=== PATIENT | male | born 1990 | race Caucasian/White ===

== ENCOUNTER 2017-07-30 12:29 | Day surgery (SDC) | payer MEDICAID ==
[~2017-07-30 12:29] MED LIST: Lactated Ringers 1,000 ML IV SCH
[2017-07-30] MEDS ORDERED: Morphine 2 MG/ML Syringe IVPUSH ONE (12:46)
[2017-07-30] MEDS: Sodium Chloride 0.9% 10 ML Syringe FLUSH PRN (13:00)
[2017-07-30] MEDS ORDERED: Rocuronium 100 MG/10 ML MDV IV ONE (13:18)
[2017-07-30] MEDS ORDERED: fentaNYL 100 MCG/2 ML SDV IV ONE (13:18)
[2017-07-30] MEDS ORDERED: Ketorolac 30 MG/ML SDV IVPUSH ONE ×2 (13:18→22:08)
[2017-07-30] MEDS ORDERED: Midazolam 1 MG/ML 2 ML SDV IV ONE (13:18)
[2017-07-30] MEDS ORDERED: Succinylcholine 200 MG/10 ML MDV IV ONE (13:18)
[2017-07-30] MEDS ORDERED: diphenhydrAMINE 50 MG/ML SDV IV ONE (13:18)
[2017-07-30] MEDS ORDERED: Propofol 200 MG/20 ML SDV IV ONE (13:18)
[2017-07-30] MEDS ORDERED: Neostigmine Methylsulfate 10 MG/10 ML MDV IVPUSH ONE (13:18)
[2017-07-30] MEDS ORDERED: Ondansetron 4 MG/2 ML SDV IVPUSH ONE (13:18)
[2017-07-30] MEDS ORDERED: Lactated Ringers 1,000 ML IV ONE (13:18)
[2017-07-30] MEDS ORDERED: Dexamethasone 4 MG/ML 5 ML MDV IVPUSH ONE (13:18)
[2017-07-30] MEDS ORDERED: cefOXitin 1 GM Vial IV ONE (13:18)
--- NOTE | 2017-07-30 13:21 | PCM.HP ---
H&P History of Present Illness - General Date of Service: 07/30/17 Admit Problem/Dx: Admission Diagnosis/Problem Admission Diagnosis/Problem Appendicitis Source of Information: Patient History Limitations: Reports: No Limitations - History of Present Illness Initial Comments - Free Text/Narative: Transferred from [place] for treatment of acute appendicitis Symptom Onset Date: 07/29/17 Duration of Symptoms: Reports: Getting Worse Location: Reports: Abdomen (localized to RLQ) Quality: Reports: Sharp Severity: Severe Improves with: Reports: None Worsens with: Reports: Movement Associated Symptoms: Reports: No Other Symptoms. Denies: Nausea/Vomiting - Related Data Allergies/Adverse Reactions: Allergies Allergy/AdvReac Type Severity Reaction Status Date / Time No Known Allergies Allergy Verified 07/30/17 12:04 Past Medical History - Past Health History Medical/Surgical History: Denies Medical/Surgical History Social & Family History - Tobacco Use Smoking Status *Q: Current Every Day Smoker Years of Tobacco use: 8 Packs/Tins Daily: 1 Used Tobacco, but Quit: No - Recreational Drug Use Recreational Drug Use: Yes Drug Use in Last 12 Months: Yes Recreational Drug Type: Reports: Marijuana/Hashish Recreational Drug Use Frequency: Daily H&P Review of Systems - Review of Systems: Review Of Systems: See Below General: Reports: No Symptoms. Denies: Fever, Chills Pulmonary: Reports: No Symptoms Cardiovascular: Reports: No Symptoms Gastrointestinal: Reports: Abdominal Pain. Denies: Nausea, Vomiting Genitourinary: Reports: No Symptoms Exam - Exam Exam: See Below - Vital Signs Weight: 68.039 kg - Exam General: Alert, Oriented Lungs: Clear to Auscultation, Normal Respiratory Effort Cardiovascular: Regular Rate, Regular Rhythm GI/Abdominal Exam: Soft, Tender (RLQ) - Patient Data Imaging Impressions Last 24 hrs: CT scan from [place] showed acute appendicitis *Q Meaningful Use (ADM) - VTE *Q VTE Criteria *Q: - Stroke *Q Stroke Criteria *Q: - AMI *Q AMI Criteria *Q: - Problem List (1) Appendicitis, acute SNOMED Code(s): 89547189 ICD Code: K35.80 - UNSPECIFIED ACUTE APPENDICITIS Status: Acute Current Visit: Yes Problem List Initiated/Reviewed/Updated: Yes Orders Last 24hrs: Active Orders 24 hr Category Date Time Status Patient Status [ADT] Routine ADT 07/30/17 12:15 Ordered Patient to Empty Bladder [RC] ASDIRECTED Care 07/30/17 12:15 Active RT Incentive Spirometry [RC] ASDIRECTED Care 07/30/17 12:15 Active Verify Patient Consent Obtain [RC] ASDIRECTED Care 07/30/17 12:15 Active Nothing Per Oral Diet [DIET] Diet 07/30/17 Breakfast Ordered Lactated Ringers [Ringers, Lactated] 1,000 ml Med 07/30/17 12:15 Active IV ASDIRECTED Sodium Chloride 0.9% [Saline Flush] Med 07/30/17 12:15 Active 10 ml FLUSH ASDIRECTED PRN Peripheral IV Insertion Adult [OM.PC] Routine Oth 07/30/17 12:15 Ordered Sequential Compression Device [OM.PC] Routine Oth 07/30/17 12:15 Ordered Resuscitation Status Routine Resus Stat 07/30/17 12:06 Ordered Medication Orders Lactated Ringer's (Ringers, Lactated) 1,000 mls @ 125 mls/hr IV ASDIRECTED RENATA Last Admin: 07/30/17 13:10 Dose: 125 mls/hr Sodium Chloride (Saline Flush) 10 ml FLUSH ASDIRECTED PRN PRN Reason: Keep Vein Open Last Admin: 07/30/17 13:00 Dose: 10 ml Assessment/Plan Comment:: Acute Appendicitis Cosmo proceed with lap appy Reviewed risks and complications and consent obtained
[2017-07-30] MEDS ORDERED: Morphine 2 MG/ML Syringe IVPUSH PRN (14:07)
--- NOTE | 2017-07-30 14:07 | PCM.OPNOTE ---
- General Post-Op/Procedure Note Date of Surgery/Procedure: 07/30/17 Operative Procedure(s): Lap Appy Findings: Acute Appendicitis Pre Op Diagnosis: Acute Appendicitis Post-Op Diagnosis: Same Anesthesia Technique: General ET Tube Primary Surgeon: Nam Wan Anesthesia Provider: Catalina Shelley Pathology: Appendix EBL in mLs: 5 Complications: None Condition: Good
[2017-07-30] MEDS: Morphine 2 MG/ML Syringe IVPUSH PRN ×2 (14:36→14:53)
--- NOTE | 2017-07-30 15:23 | OR ---
DATE OF OPERATION: 07/30/2017 SURGEON: Nam Wan MD PREOPERATIVE DIAGNOSIS: Acute appendicitis. POSTOPERATIVE DIAGNOSIS: Acute appendicitis. PROCEDURE: Laparoscopic appendectomy. ANESTHESIA: General. DESCRIPTION OF PROCEDURE: The patient was brought to the operating room, where general endotracheal anesthesia was administered. His abdomen was prepped with ChloraPrep and draped sterilely. An infraumbilical incision was made and extended into the peritoneal cavity without difficulty. The Verna cannulator was introduced and pneumoperitoneum obtained. A 5 mm ports were placed in the suprapubic position and skilled nursing between the umbilicus and pubis. The patient was placed in Trendelenburg position and rotated to the left. A large acutely inflamed appendix was present with some omentum stuck to it that was removed. The mesoappendix was taken down with one application of an Endo-VALDEZ 2.5 mm stapler. The pulsatile vessel was present along the staple line that was doubly clipped with a hemoclip. The appendix was then transected at its base with an Endo-VALDEZ 3.5 mm stapler. There was also a pulsatile small-vessel that was clipped with a hemoclip for hemostasis. Appendix was brought out through the umbilical incision and right lower quadrant thoroughly inspected and irrigated and return was clear and hemostasis assured. Ports were removed under direct vision and remained hemostatic. Umbilical fascia was closed with figure-of- eight 0 Vicryl. Skin was closed with 4-0 Vicryl subcuticular sutures. Benzoin and Steri-Strips were placed and Band-Aids applied. The patient tolerated the procedure well. ESTIMATED BLOOD LOSS: 5 mL. He returned to postanesthesia in stable condition. /[id number] [id number]/JACQUI
[2017-07-30] MEDS: Acetaminophen/HYDROcodone 325-5 MG Tab PO PRN ×2 (16:43→20:50)
[2017-07-30] MEDS: Lactated Ringers 1,000 ML IV SCH (18:30)
[2017-07-30] MEDS ORDERED: Nicotine 21 MG/24 Hr Patch TRDERM ONE (19:12)
[2017-07-31] MEDS: Acetaminophen/HYDROcodone 325-5 MG Tab PO PRN ×3 (00:50→09:16)
[2017-07-31] MEDS: Lactated Ringers 1,000 ML IV SCH (02:33)
[2017-07-31] MEDS ORDERED: Ketorolac 30 MG/ML SDV IVPUSH ONE (12:22)
--- NOTE | 2017-07-31 12:26 | PCM.SURGPN ---
- General Info Date of Service: 07/31/17 POD#: 1 Functional Status: Reports: Pain Controlled, Tolerating Diet, Ambulating - Review of Systems General: Reports: No Symptoms - Patient Data Vitals - Most Recent: Last Vital Signs Temp 97.6 F 07/31/17 08:10 Pulse 58 L 07/31/17 08:10 Resp 18 07/31/17 08:10 BP 123/77 07/31/17 08:10 Pulse Ox 100 07/31/17 08:10 Weight - Most Recent: 68.039 kg I&O - Last 24 Hours: Intake & Output 07/30/17 07/31/17 07/31/17 22:59 06:59 14:59 Intake Total 825 998 586 Output Total 300 400 Balance 525 598 586 Med Orders - Current: Current Medications Hydrocodone Bitart/Acetaminophen ([place] 325-5 Mg) 1 tab PO Q4H PRN PRN Reason: Pain Last Admin: 07/31/17 09:16 Dose: 1 tab Lactated Ringer's (Ringers, Lactated) 1,000 mls @ 125 mls/hr IV ASDIRECTED [facility] Last Admin: 07/31/17 02:33 Dose: 125 mls/hr Ketorolac Tromethamine (Toradol) 30 mg IVPUSH ONETIME ONE Stop: 07/31/17 12:23 Sodium Chloride (Saline Flush) 10 ml FLUSH ASDIRECTED PRN PRN Reason: Keep Vein Open Last Admin: 07/30/17 13:00 Dose: 10 ml Discontinued Medications Lactated Ringer's (Ringers, Lactated) 1,000 mls @ 125 mls/hr IV ASDIRECTED [facility] Last Admin: 07/30/17 13:10 Dose: 125 mls/hr Ketorolac Tromethamine (Toradol) 30 mg IVPUSH ONETIME ONE Stop: 07/30/17 22:09 Last Admin: 07/30/17 22:37 Dose: 30 mg Morphine Sulfate (Morphine) 2 mg IVPUSH ONETIME ONE Stop: 07/30/17 12:47 Last Admin: 07/30/17 13:04 Dose: 2 mg Morphine Sulfate (Morphine) 2 mg IVPUSH Q2H PRN PRN Reason: Pain (severe 7-10) Morphine Sulfate (Morphine) 2 mg IVPUSH Q3M PRN PRN Reason: Abdominal Pain Last Admin: 07/30/17 14:53 Dose: 2 mg Nicotine (Habitrol) 21 mg TRDERM ONETIME ONE Stop: 07/30/17 19:13 Last Admin: 07/30/17 19:39 Dose: 21 mg - Exam Wound/Incisions: Healing Well GI/Abdominal Exam: Soft - Problem List & Annotations (1) Appendicitis, acute SNOMED Code(s): 47780056 Code(s): K35.80 - UNSPECIFIED ACUTE APPENDICITIS Status: Acute Current Visit: Yes Qualifiers: Acute appendicitis type: unspecified acute appendicitis type Qualified Code (s): K35.80 - Unspecified acute appendicitis - Problem List Review Problem List Initiated/Reviewed/Updated: Yes - My Orders Last 24 Hours: Active Orders 24 hr Category Date Time Status Patient Status [ADT] Routine ADT 07/30/17 12:15 Ordered May Shower [RC] ASDIRECTED Care 07/31/17 08:00 Active Oxygen Therapy [RC] PRN Care 07/30/17 14:07 Active RT Incentive Spirometry [RC] ASDIRECTED Care 07/30/17 12:15 Active Ready for Discharge [RC] PER UNIT ROUTINE Care 07/31/17 12:24 Ordered Up ad Tracie [RC] .PRN Care 07/30/17 14:07 Active Vital Signs [RC] 00,04,08,12,16,20 Care 07/30/17 14:07 Active Soft Diet [DIET] Diet 07/31/17 Lunch Ordered Acetaminophen/HYDROcodone [[place] 325-5 MG] Med 07/30/17 16:18 Active 1 tab PO Q4H PRN Ketorolac [Toradol] Med 07/31/17 12:22 Once 30 mg IVPUSH ONETIME ONE Lactated Ringers [Ringers, Lactated] 1,000 ml Med 07/30/17 14:15 Active IV ASDIRECTED Sodium Chloride 0.9% [Saline Flush] Med 07/30/17 12:15 Active 10 ml FLUSH ASDIRECTED PRN Peripheral IV Insertion Adult [OM.PC] Routine Oth 07/30/17 12:15 Ordered Sequential Compression Device [OM.PC] Routine Oth 07/30/17 12:15 Ordered Resuscitation Status Routine Resus Stat 07/30/17 12:06 Ordered Medication Orders Hydrocodone Bitart/Acetaminophen ([place] 325-5 Mg) 1 tab PO Q4H PRN PRN Reason: Pain Last Admin: 07/31/17 09:16 Dose: 1 tab Admin: 07/31/17 05:05 Dose: 1 tab Admin: 07/31/17 00:50 Dose: 1 tab Admin: 07/30/17 20:50 Dose: 1 tab Admin: 07/30/17 16:43 Dose: 1 tab Lactated Ringer's (Ringers, Lactated) 1,000 mls @ 125 mls/hr IV ASDIRECTED RENATA Last Admin: 07/31/17 02:33 Dose: 125 mls/hr Infusion: 07/31/17 02:30 Dose: 125 mls/hr Admin: 07/30/17 18:30 Dose: 125 mls/hr Ketorolac Tromethamine (Toradol) 30 mg IVPUSH ONETIME ONE Stop: 07/31/17 12:23 Sodium Chloride (Saline Flush) 10 ml FLUSH ASDIRECTED PRN PRN Reason: Keep Vein Open Last Admin: 07/30/17 13:00 Dose: 10 ml - Assessment Assessment (Free Text/Narrative):: Doing well - Plan Plan (Free Text/Narrative):: Discharge to home
[2017-07-31] MEDS: Sodium Chloride 0.9% 10 ML Syringe FLUSH PRN (12:35)
== END 2017-07-31 12:50 | disposition home or self-care (01) ==
LOC: FB.SDS 12:29 → FB.MS 15:10 → FB.SDS 07-31 12:50
PROVIDERS: ATTEND Surgery
DX: K35.80 Unspecified acute appendicitis (principal); F17.210 Nicotine dependence, cigarettes, uncomplicated
CPT/HCPCS: 44970; A9270; J1885; J2270; J7050; J7120; 88304; J0330; J0694; J1100; J1200; J2250; J2405; J2704; J2710; J3010

== ENCOUNTER 2024-05-10 12:51 | Emergency (ER) | payer SELFPAY ==
[2024-05-10] MEDS: Sodium Chloride 0.9% 1,000 ML IV ONE ×2 (13:24→14:22)
[2024-05-10] MEDS: Aspirin 81 MG Tab.Chew PO ONE (13:24)
[2024-05-10 13:30] LABS: BASOPHILS ABSOLUTE AUTO 0.1 x10-3/uL (0.0-0.3); BASOPHILS PERCENT AUTO 0.8 % (0.3-3.8); EOSINOPHILS ABSOLUTE AUTO 0.1 x10-3/uL (0.0-0.6); EOSINOPHILS PERCENT AUTO 0.5 % (0.1-6.8); LYMPHOCYTES ABSOLUTE AUTO 2.4 x10-3/uL (0.5-4.5); LYMPHOCYTES PERCENT AUTO 22.1 % (15.8-45.3); MEAN CORPUSCULAR HGB CONC 34.1 g/dL (28.7-35.3); MEAN CORPUSCULAR VOLUME 90.9 fL (80.8-98.7); MEAN PLATELET VOLUME 8.3 fL (6.7-11.0); MONOCYTES ABSOLUTE AUTO 0.6 x10-3/uL (0.0-1.2); MONOCYTES PERCENT AUTO 5.5 % (5.5-15.2); NEUTROPHILS ABSOLUTE AUTO 7.6 x10-3/uL (1.7-6.9); NEUTROPHILS PERCENT AUTO 71.1 % (40.3-71.8); PLATELET COUNT,PLT 253 x10(3)uL (117-477); RED BLOOD CELL COUNT 5.18 x10(6)uL (3.90-5.90); RED CELL DISTRIBUTION WIDTH 13.6 % (12.4-15.0); WHITE BLOOD CELL COUNT,WBC 10.8 x10-3/uL (3.2-10.1)
[2024-05-10] MEDS: LORazepam 2 MG/ML SDV IVPUSH ONE (13:32)
[2024-05-10 13:35] LABS: BLOOD UREA NITROGEN,BUN 11 mg/dL (7-18); CALCIUM 8.6 mg/dL (8.6-10.2); CARBON DIOXIDE,CO2 21 mmol/L (21-32); CHLORIDE,CL 98 mmol/L (100-110); CREATININE 1.1 mg/dL (0.70-1.30); EST CRCL DRUG DOSING (CG) 84.57 mL/min; ESTIMATED GFR 91 mL/min (>60); GLUCOSE RANDOM 142 mg/dL (80-116); POTASSIUM,K 3.1 mmol/L (3.5-5.3); SODIUM,NA 136 mmol/L (135-145)
[2024-05-10 13:39] LABS: A/G RATIO 1.1; ALANINE AMINOTRANSFERASE,ALT 26 U/L (12-36); ALKALINE PHOSPHATASE 55 IU/L (56-112); ASPARTATE AMNIOTRANSFERASE,AST 16 IU/L (5-25); BILIRUBIN TOTAL 0.7 mg/dL (0.1-1.3); MAGNESIUM 1.3 mg/dL (1.8-2.5); PROTEIN TOTAL,TP 7.5 g/dL (6.0-8.0)
[2024-05-10 13:44] LABS: BILIRUBIN,URINE NEGATIVE (NEGATIVE); GLUCOSE,URINE NORMAL (NORMAL); KETONES,URINE 15 mg/dL (NEGATIVE); LEUKOCYTE ESTERASE,URINE NEGATIVE (NEGATIVE); NITRITE,URINE NEGATIVE (NEGATIVE); OCCULT BLOOD,URINE NEGATIVE (NEGATIVE); PROTEIN,URINE NEGATIVE (NEGATIVE); UROBILINOGEN,URINE NORMAL (NEGATIVE)
[2024-05-10 13:53] LABS: AMPHETAMINES SCREEN, URINE NEGATIVE (NEGATIVE); APPEARANCE,URINE CLEAR (CLEAR); BARBITURATE SCREEN,URINE NEGATIVE (NEGATIVE); BENZODIAZEPINES SCREEN,URINE NEGATIVE (NEGATIVE); BUPRENORPHINE SCREEN,URINE NEGATIVE (NEGATIVE); COLOR,URINE YELLOW (YELLOW); METHADONE SCREEN, URINE NEGATIVE (NEGATIVE); METHAMPHETAMINE SCREEN, URINE NEGATIVE (NEGATIVE); OXYCODONE SCREEN,URINE NEGATIVE (NEGATIVE); RBC,URINE 0-5 (0-5); SQUAMOUS EPITHELIAL CELLS,UR RARE (NS,R,O); THC SCREEN,URINE POSITIVE (NEGATIVE); WBC,URINE 0-5 (0-5)
[2024-05-10] MEDS: LORazepam 1 MG Tab PO ONE (13:53)
[2024-05-10 13:54] LABS: BACTERIA,URINE NOT SEEN (NS)
[2024-05-10] MEDS: Potassium Chloride 20 MEQ Tab.ER PO ONE (14:14)
[2024-05-10] MEDS: Magnesium Sulfate/Water Premix 2 GM in Premix Bag 1 BAG IV ONE (14:14)
[2024-05-10] MEDS: Sodium Chloride 0.9% 1,000 ML IV SCH (15:30)
== END 2024-05-10 17:50 | disposition home or self-care (01) ==
LOC: FB.ED 12:51
DX: I47.10 Supraventricular tachycardia, unspecified (principal); F41.9 Anxiety disorder, unspecified; R06.4 Hyperventilation; E86.0 Dehydration; E87.6 Hypokalemia; E87.20 Acidosis, unspecified; E83.42 Hypomagnesemia; F17.200 Nicotine dependence, unspecified, uncomplicated; Z90.49 Acquired absence of other specified parts of digestive tract
CPT/HCPCS: 36415; 71045; 80053; 80307; 81001; 83605; 83735; 84484; 85025; 85379; 93005; 96361; 96365; 96366; 96375; 99285; A9270; J2060; J3475; J7030